=== PATIENT | female | born 1950 | race Caucasian/White ===

== ENCOUNTER 2020-02-19 12:50 | Emergency (ER) | payer MEDICARE ==
[~2020-02-19] VITALS: Ht 157.5 cm; Wt 105.5 kg
[~2020-02-19 12:50] MED LIST: CARTIA XT120 MG PO; LEVAQUIN500 MG PO; LEVOTHYROXINE112 MCG PO; LOSARTAN POTASS25 MG PO; OMEPRAZOLE40 MG PO; SERTRALINE HCL50 MG PO; TYLENOL WITH C1 EACH PO
[2020-02-19] MEDS ORDERED: NIFEDIPINE ER30 M1 (13:13)
--- NOTE | 2020-02-19 13:16 | Emergency Department Note ---
History of Present Illnes History of Present Illness Chief Complaint: rgt forehead/periorbital pain swelling/abrasions bilateral palms s/p trip and fall History of Present Illness This is a 69 year old female. was doing well prior to this. Historian: Patient Arrival Mode: Car Additional Treatment SIGNALS COLLECTOR/ANALYST: 1200 advil History limited by: condition of the patient (normal) Squeak Rattle And Leak Repairer Required: No Onset (how long ago): hour(s) (1.5) Location: see above Quality: see above Radiation: Reports non-radiation Severity: moderate Onset quality: sudden Duration (how long): hour(s) (1.5) Timing of current episode: constant Progression: unchanged Chronicity: new Context: Reports trauma/injury; Denies recent illness, Denies recent surgery, Denies recent immobilization, Denies recent travel, Denies new medications, Denies hx of DVT/PE, Denies non-compliance w/ medications Relieving factors: none Exacerbating factors: none Associated symptoms: Reports denies other symptoms Treatments prior to arrival: none Past Medical/Family History Physician Review I have reviewed the patient's past medical and family history. Any updates have been documented here. Past Medical History Recent Fever: No Clinical Suspicion of Infectio: No New/Unexplained Change in Ment: No Past Medical History: Hypertension, Hypothyroidism, GERD Other Medical History: DEPRESSION REFLUX Past Surgical History: Cholecysctectomy, T&A, Cataract Removal Other Surgery: Parathyroidectomy Social History Smoking Cessation: Never Smoker Counseling Performed: No Alcohol Use: None Any Illegal Drug Use: No Physically hurt or threatened: No Other Last Tetanus: UNK Any Pre-Existing Lines (PICC,: No Review of Systems Review of Systems Constitutional: Reports no symptoms EENTM: Reports no symptoms Cardiovascular: Reports no symptoms Respiratory: Reports no symptoms Gastrointestinal: Reports no symptoms Genitourinary: Reports no symptoms Musculoskeletal: Reports no symptoms Integumentary: Reports as per HPI, Reports other (abrasions) Neurological: Reports as per HPI, Reports headache Psychological: Reports no symptoms Endocrine: Reports no symptoms Hematological/Lymphatic: Reports no symptoms Review of other systems: All other systems negative Physical Exam Related Data Allergies: Coded Allergies: alendronate sodium (Verified Allergy, Unknown, 02/19/20) Triage Vital Signs Vital Signs Date Time Temp Pulse Resp B/P (MAP) Pulse Ox O2 Delivery O2 Flow Rate FiO2 02/19/20 12:55 98.2 103 18 170/91 97 Room Air Vital signs reviewed: Yes Physical Exam CONSTITUTIONAL Constitutional: Present well-developed, Present well-nourished HENT HENT: Present normocephalic, Present oropharynx clear/moist, Present nose normal, Present other (rgt forehead /periorbital pain/swelling) HENT L/R: Present left ext ear normal, Present right ext ear normal EYES Eyes: Reports PERRL, Reports conjunctivae normal NECK Neck: Present ROM normal, Present supple PULMONARY Pulmonary: Present effort normal, Present breath sounds normal CARDIOVASCULAR Cardiovascular: Present regular rhythm, Present heart sounds normal, Present capillary refill normal, Present normal rate GASTROINTESTINAL Abdominal: Present soft, Present nontender, Present bowel sounds normal GENITOURINARY Genitourinary: Present exam deferred SKIN Skin: Present warm, Present other (abrasions rgt periorbitla/bilateral palms) MUSCULOSKELETAL Musculoskeletal: Present ROM normal NEUROLOGICAL Neurological: Present alert, Present oriented x 3, Present no gross motor or sensory deficits PSYCHOLOGICAL Psychological: Present mood/affect normal, Present judgement normal Results Imaging Imaging results reviewed: Yes Impressions [place] [id number] Patient Name: SOPHIA ELLIS MR #: [id number] : 1950 Age/Sex: 69/F Req #: [id number] Adm Physician: Ordered by: LILA KENNEY Report #: [id number] Location: [facility] Room/Bed: Procedure: [id number] HOPD/CT BRAIN WO-HOPD Exam Date: 02/19/20 Exam Time: 1333 REPORT STATUS: Signed CT BRAIN WO-HOPD HISTORY: Fall COMPARISON: None. TECHNIQUE: Noncontrast axial scans were obtained from skull base to the vertex. Coronal and sagittal reconstructions obtained from the axial data. One or more of the following dose reduction techniques were used: Automated exposure control, adjustment of the mA and/or kV according to patient size, and/or utilization of iterative reconstruction technique. Beam hardening artifacts obscure some details. DISCUSSION: Scalp/Skull: Small superficial right periorbital hematoma is present. No calvarial fracture is seen. Small exostosis along the outer table of the left parietal bone is present. Brain sulci: Appropriate for patient's age. Ventricles: Normal in size and configuration. No hydrocephalus. Extra-axial spaces: No masses or fluid collections. Carotid siphon calcifications are present. Parenchyma: Small hypodensities in the right striatocapsular region and posterior left centrum semiovale may be age indeterminate lacunar infarcts. Otherwise, no mass, hemorrhage, or large vascular territory acute infarct. Dural sinuses: No abnormal densities. Sellar/Suprasellar region: Intact. Skull base: Intact. Incidental findings: Bilateral ocular lens replacement. Partially imaged minimal left maxillary sinus mucosal thickening. IMPRESSION: 1. 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 2. Otherwise, no acute intracranial abnormalities. Signed by: Dr. Vito Bowser M.D. on 02/19/2020 2:06 PM Dictated By: VITO BOWSER MD 05 Transcribed By: LAURENCE on 02/19/201405 COPY TO: LILA KENNEY~ [place] [address] Patient Name: SOPHIA ELLIS MR #: [id number] : 1950 Age/Sex: 69/F Req #: [id number] Adm Physician: Ordered by: LILA KENNEY Report #: [id number] Location: [facility] Room/Bed: Procedure: [id number] HOPD/CT MAX/FACPARANASA SIN WO-HOPD Exam Date: 02/19/20 Exam Time: 1340 REPORT STATUS: Signed CT MAX/FACPARANASA SIN WO-HOPD HISTORY: Pain, fall COMPARISON: None. TECHNIQUE: Axial CT images through the face were obtained without contrast. Coronal/sagittal reformations were created. One or more of the following dose reduction techniques were used: Automated exposure control, adjustment of the mA and/or kV according to patient size, and/or utilization of iterative reconstruction technique. DISCUSSION: Small superficial right periorbital hematoma is present. No acute fracture is seen. No destructive osseous lesions are seen. There are mild degenerative changes in the spine and temporomandibular joints. The orbits are intact. Bilateral ocular lens replacement. Intraorbital contents are otherwise grossly unremarkable. Minimal left maxillary sinus mucosal thickening is present. IMPRESSION: No acute osseous abnormalities. Signed by: Dr. Vito Bowser M.D. on 02/19/2020 2:11 PM Dictated By: VITO BOWSER MD 1411 Transcribed By: LAURENCE on 02/19/20 1411 COPY TO: LILA KENNEY~ Assessment & Plan Medical Decision Making MDM see below Assessment & Plan Final Impression: (1) Multiple contusions (2) Traumatic hematoma of cheek (3) Abrasion (4) Fall Depart Disposition: HOME, SELF-CARE Last Vital Signs Date Time Temp Pulse Resp B/P (MAP) Pulse Ox O2 Delivery O2 Flow Rate FiO2 02/19/20 12:55 98.2 103 18 170/91 97 Room Air Home Meds Reported Medications Nifedipine (NIFEDIPINE ER) 30 Mg Tab.er.24, DAILY 02/19/20 Omeprazole (OMEPRAZOLE) 40 Mg Capsule.dr, 40 MG PO DAILY 04/13/16 Losartan Potassium (LOSARTAN POTASSIUM) 25 Mg Tablet, 25 MG PO DAILY 04/13/16 Levothyroxine Sodium (LEVOTHYROXINE SODIUM) 112 Mcg Tablet, 100 MCG PO DAILY, #30 TAB 04/13/16 Discontinued Reported Medications Acetaminophen With Codeine (TYLENOL WITH CODEINE #3 TABLET) 1 Each Tablet, 300 MG PO Q6H, TAB 04/13/16 Levofloxacin (LEVAQUIN) 500 Mg Tablet, 500 MG PO DAILY, TAB 04/13/16 Diltiazem Hcl (CARTIA XT) 120 Mg Cap.er.24h, 120 MG PO DAILY 04/13/16 Sertraline Hcl (SERTRALINE HCL) 50 Mg Tablet, 25 MG PO DAILY, #30 TAB 04/13/16 LILA KENNEY Feb 19, 2020 13:16
--- NOTE | 2020-02-19 14:09 | Diagnostic Imaging Report ---
CT BRAIN [facility] HISTORY: Fall COMPARISON: None. TECHNIQUE: Noncontrast axial scans were obtained from skull base to the vertex. Coronal and sagittal reconstructions obtained from the axial data. One or more of the following dose reduction techniques were used: Automated exposure control, adjustment of the mA and/or kV according to patient size, and/or utilization of iterative reconstruction technique. Beam hardening artifacts obscure some details. DISCUSSION: Scalp/Skull: Small superficial right periorbital hematoma is present. No calvarial fracture is seen. Small exostosis along the outer table of the left parietal bone is present. Brain sulci: Appropriate for patient's age. Ventricles: Normal in size and configuration. No hydrocephalus. Extra-axial spaces: No masses or fluid collections. Carotid siphon calcifications are present. Parenchyma: Small hypodensities in the right striatocapsular region and posterior left centrum semiovale may be age indeterminate lacunar infarcts. Otherwise, no mass, hemorrhage, or large vascular territory acute infarct. Dural sinuses: No abnormal densities. Sellar/Suprasellar region: Intact. Skull base: Intact. Incidental findings: Bilateral ocular lens replacement. Partially imaged minimal left maxillary sinus mucosal thickening. IMPRESSION: 1. 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 2. Otherwise, no acute intracranial abnormalities. Signed by: Dr. Vito Ahuja M.D. on 02/19/2020 2:06 PM
--- NOTE | 2020-02-19 14:14 | Diagnostic Imaging Report ---
CT MAX/FACPARANASA [facility] HISTORY: Pain, fall COMPARISON: None. TECHNIQUE: Axial CT images through the face were obtained without contrast. Coronal/sagittal reformations were created. One or more of the following dose reduction techniques were used: Automated exposure control, adjustment of the mA and/or kV according to patient size, and/or utilization of iterative reconstruction technique. DISCUSSION: Small superficial right periorbital hematoma is present. No acute fracture is seen. No destructive osseous lesions are seen. There are mild degenerative changes in the spine and temporomandibular joints. The orbits are intact. Bilateral ocular lens replacement. Intraorbital contents are otherwise grossly unremarkable. Minimal left maxillary sinus mucosal thickening is present. IMPRESSION: No acute osseous abnormalities. Signed by: Dr. Vito Ahuja M.D. on 02/19/2020 2:11 PM
[2020-02-19 14:38] VITALS: BP 170/86
== END 2020-02-19 14:37 | disposition home or self-care (01) ==
LOC: FSED 13:11
DX: S00.83XA Contusion of other part of head, initial encounter (principal); S60.512A Abrasion of left hand, initial encounter; S60.511A Abrasion of right hand, initial encounter; W01.0XXA Fall on same level from slipping, tripping and stumbling without subsequent striking against object, initial encounter; Y93.01 Activity, walking, marching and hiking; I10 Essential (primary) hypertension; E03.9 Hypothyroidism, unspecified; K21.9 Gastro-esophageal reflux disease without esophagitis
CPT/HCPCS: 70450; 70486; 99283

== ENCOUNTER 2024-06-11 08:35 | Emergency (ER) | payer MEDICARE ==
[~2024-06-11] VITALS: Ht 158.8 cm; Wt 88.1 kg
[~2024-06-11 08:35] MED LIST changes: +NIFEDIPINE ER30 M1
[2024-06-11 08:40] VITALS: PULSE 70; RESP 18; TEMP 97.9
[2024-06-11] MEDS ORDERED: CEPHALEXIN500 MG PO (09:55)
[2024-06-11] MEDS: SODIUM CHLORIDE 0.9% 1000ML 1,000 ML IV ONE (09:58)
[2024-06-11] MEDS ORDERED: LEVOTHYROXINE88 MCG PO (10:03)
[2024-06-11] MEDS ORDERED: BUSPIRONE HCL5 MG PO (10:03)
[2024-06-11] MEDS ORDERED: PROPRANOLOL HCL20 MG (10:03)
[2024-06-11] MEDS ORDERED: SERTRALINE HCL100 MG PO (10:03)
[2024-06-11 10:11] VITALS: BP 160/72; PULSE 52; RESP 18; TEMP 98.1; O2SAT 100
== END 2024-06-11 10:10 | disposition home or self-care (01) ==
LOC: FSED 08:40
DX: R00.2 Palpitations (principal); N30.90 Cystitis, unspecified without hematuria; E03.9 Hypothyroidism, unspecified; I10 Essential (primary) hypertension; K21.9 Gastro-esophageal reflux disease without esophagitis; F32.A Depression, unspecified; Z11.52 Encounter for screening for COVID-19; R94.31 Abnormal electrocardiogram [ECG] [EKG]
CPT/HCPCS: 0223U; 71045; 80053; 81003; 84484; 85025; 87400; 93005; 99283; J7030

== ENCOUNTER 2024-09-18 17:18 | Inpatient (IN) | payer MEDICARE ==
[~2024-09-18] VITALS: Ht 158.8 cm; Wt 71.7 kg
[~2024-09-18 17:18] MED LIST changes: +BUSPIRONE HCL5 MG PO; +CEPHALEXIN500 MG PO; +LEVOTHYROXINE88 MCG PO; +PROPRANOLOL HCL20 MG; +SERTRALINE HCL100 MG PO
[2024-09-18 17:39] VITALS: TEMP 97.5
[2024-09-18 19:15] LABS: BASOPHILS # (AUTO) 0.1 (0.0-0.1); BASOPHILS % 0.8 % (0.0-1.0); EOSINOPHILS # (AUTO) 0.1 (0.0-0.4); EOSINOPHILS % 1.1 % (0.0-6.0); HEMATOCRIT 42.6 % (34.2-44.1); HEMOGLOBIN 14.6 g/dL (12.0-16.0); LYMPHOCYTES # (AUTO) 1.2 (1.0-3.2); LYMPHOCYTES % 13.2 % (18.0-39.1); MEAN CORPUSCULAR HEMOGLOBIN 31.1 pg (28-32); MEAN CORPUSCULAR HGB CONC 34.3 g/dL (31-35); MEAN CORPUSCULAR VOLUME 90.6 fL (81-99); MONOCYTES # (AUTO) 0.7 (0.2-0.8); MONOCYTES % 8.1 % (4.4-11.3); NEUTROPHILS # (AUTO) 6.9 (2.1-6.9); NEUTROPHILS % 76.1 % (38.7-80.0); PLATELET COUNT 203 x10e3/uL (140-360); RED CELL DISTRIBUTION WIDTH 13.5 % (11.7-14.4); WHITE BLOOD COUNT 9.01 x10e3/uL (4.8-10.8)
[2024-09-18 19:36] LABS: ALBUMIN 3.6 g/dL (3.5-5.0); ALBUMIN/GLOBULIN RATIO 0.9 (0.8-2.0); ANION GAP 20.7 mmol/L (8-16); BILIRUBIN,TOTAL 0.7 mg/dL (0.2-1.2); CALCIUM 9.7 mg/dL (8.4-10.2); CREATININE, SERUM 1.06 mg/dL (0.57-1.11); POTASSIUM 3.7 mmol/L (3.5-5.1); TOTAL PROTEIN 7.4 g/dL (6.5-8.1)
[2024-09-18 19:44] LABS: TROPONIN I 0.018 ng/mL (0-0.300)
[2024-09-18] MEDS: SODIUM CHLORIDE 0.9% 1000ML 2,000 ML IV STA (20:18)
[2024-09-18] MEDS ORDERED: SODIUM CHLORIDE 0.9% 1000ML 1,000 ML ONE (20:19)
[2024-09-18] MEDS ORDERED: Morphine 2mg Syringe 2 MG/ML SYR IV PRN (21:00)
[2024-09-18] MEDS ORDERED: SODIUM CHLORIDE 0.9% 1000ML 2,000 ML ONE (21:37)
[2024-09-18] MEDS: SODIUM CHLORIDE 0.9% 1000ML 1,000 ML IV SCH (21:40)
[2024-09-18] MEDS: SODIUM CHLORIDE 0.9% 1000ML 2,000 ML IV SCH (21:41)
[2024-09-18 23:45] LABS: CLARITY,URINE CLEAR (CLEAR); COLOR,URINE AMBER (YELLOW); LEUKOCYTE ESTERASE ,URINE NEGATIVE (NEGATIVE); NITRITE,URINE NEGATIVE (NEGATIVE); PH,URINE 5.5 (5 - 7); PROTEIN,URINE DIPSTICK 1+ (NEGATIVE)
[2024-09-18 23:46] LABS: BILIRUBIN,URINE MODERATE (NEGATIVE); GLUCOSE, URINE NEGATIVE (NEGATIVE); KETONES,URINE NEGATIVE (NEGATIVE); URINE UROBILINOGEN 1 mg/dL (0.2 - 1)
[2024-09-18 23:48] LABS: EPITHELIAL CELLS,URINE RARE /LPF; MUCUS,URINE MODERATE; RBC,URINE 0-5 /HPF (0-5); WBC,URINE (MAN) 0-5 /HPF (0-5)
[2024-09-18 23:49] LABS: BACTERIA,URINE FEW /HPF
[2024-09-19] VITALS (9 sets, daily range): BP systolic 123–157; BP diastolic 70–93; PULSE 72–95; RESP 17–20; TEMP 97.9–98.3; O2SAT 98–100
[2024-09-19] MEDS ORDERED: Morphine 2mg Syringe 2 MG/ML SYR IV PRN (00:45)
[2024-09-19] MEDS ORDERED: ONDANSETRON HCL INJ 2MG/ML 2ML 2 MG/ML VIAL IV PRN (00:45)
[2024-09-19] MEDS ORDERED: BENZONATATE 100 MG CAP PO PRN (01:45)
[2024-09-19] MEDS ORDERED: DIPHENHYDRAMINE HCL 25 MG CAP PO PRN (01:45)
[2024-09-19] MEDS ORDERED: LIDOCAINE 4% PATCH TP PRN (01:45)
[2024-09-19] MEDS ORDERED: DEXTROSE 50% SYRINGE 50 ML IV PRN (01:45)
[2024-09-19] MEDS ORDERED: DOCUSATE SODIUM 100 MG CAP PO PRN (01:45)
[2024-09-19] MEDS ORDERED: SIMETHICONE 80 MG CHEW PO PRN (01:45)
[2024-09-19] MEDS ORDERED: ALBUTEROL/IPRATROPIUM 3 ML NEB NEB PRN (01:45)
[2024-09-19] MEDS: SODIUM CHLORIDE 0.9% 1000ML 1,000 ML IV SCH (02:31)
[2024-09-19 05:34] LABS: BASOPHILS # (AUTO) 0.1 (0.0-0.1); BASOPHILS % 0.7 % (0.0-1.0); EOSINOPHILS # (AUTO) 0.1 (0.0-0.4); EOSINOPHILS % 1.5 % (0.0-6.0); HEMOGLOBIN 11.8 g/dL (12.0-16.0); LYMPHOCYTES # (AUTO) 1.3 (1.0-3.2); LYMPHOCYTES % 14.2 % (18.0-39.1); MEAN CORPUSCULAR HEMOGLOBIN 31.6 pg (28-32); MEAN CORPUSCULAR HGB CONC 34.7 g/dL (31-35); MEAN CORPUSCULAR VOLUME 90.9 fL (81-99); MONOCYTES # (AUTO) 0.7 (0.2-0.8); MONOCYTES % 7.9 % (4.4-11.3); NEUTROPHILS # (AUTO) 6.9 (2.1-6.9); NEUTROPHILS % 75.2 % (38.7-80.0); PLATELET COUNT 157 x10e3/uL (140-360); RED BLOOD COUNT 3.74 x10e6/uL (3.6-5.1); RED CELL DISTRIBUTION WIDTH 13.6 % (11.7-14.4); WHITE BLOOD COUNT 9.13 x10e3/uL (4.8-10.8)
[2024-09-19 05:36] LABS: CHOL/HDL RATIO 4.8 (3.0-3.6)
[2024-09-19 05:50] LABS: TROPONIN I 0.081 ng/mL (0-0.300)
[2024-09-19 05:57] LABS: THYROID STIMULATING HORMONE 0.386 uIU/mL (0.350-4.940)
[2024-09-19 06:09] LABS: ALBUMIN 2.7 g/dL (3.5-5.0); ALBUMIN/GLOBULIN RATIO 0.9 (0.8-2.0); ANION GAP 17.2 mmol/L (8-16); BILIRUBIN,TOTAL 0.4 mg/dL (0.2-1.2); CALCIUM 7.6 mg/dL (8.4-10.2); CREATININE, SERUM 0.73 mg/dL (0.57-1.11); POTASSIUM 3.2 mmol/L (3.5-5.1); TOTAL PROTEIN 5.6 g/dL (6.5-8.1)
[2024-09-19] MEDS ORDERED: IOPAMIDOL 370 MG/ML 100 ML INFUS..BTL INJ ONE (06:48)
[2024-09-19] MEDS ORDERED: ARIPIPRAZOLE2 MG PO (07:50)
[2024-09-19] MEDS ORDERED: NYSTATIN15 G2 TOP (07:50)
[2024-09-19] MEDS ORDERED: KETOCONAZOLE15 GM TOP (07:50)
[2024-09-19] MEDS: PANTOPRAZOLE SOD 40 MG TABEC PO SCH (12:04)
[2024-09-19] MEDS: POTASSIUM CHLORIDE 20 MEQ TAB CR PO PRN (12:05)
[2024-09-19 17:01] LABS: TROPONIN I 0.046 ng/mL (0-0.300)
[2024-09-19 17:19] LABS: FREE T4 (FREE THYROXINE) 1.09 ng/dL (0.8-1.8); THYROID STIMULATING HORMONE 0.465 uIU/mL (0.350-4.940)
[2024-09-19] MEDS: BUSPIRONE HCL 5 MG TAB PO SCH (18:03)
[2024-09-19] MEDS: ENOXAPARIN SOD INJ 40 MG/0.4 ML SYR SC SCH (18:04)
[2024-09-19] MEDS: SERTRALINE HCL 100 MG TAB PO SCH (21:41)
[2024-09-20] VITALS (7 sets, daily range): BP systolic 126–163; BP diastolic 66–98; PULSE 62–91; RESP 16–19; TEMP 97–98.8; O2SAT 95–100
[2024-09-20] MEDS: MELATONIN 5 MG TABLET PO PRN (01:01)
[2024-09-20] MEDS: ACETAMINOPHEN 325 MG TAB PO PRN (01:02)
[2024-09-20 05:20] LABS: BASOPHILS # (AUTO) 0.1 (0.0-0.1); EOSINOPHILS # (AUTO) 0.2 (0.0-0.4); EOSINOPHILS % 2.9 % (0.0-6.0); HEMATOCRIT 33.6 % (34.2-44.1); HEMOGLOBIN 11.2 g/dL (12.0-16.0); LYMPHOCYTES # (AUTO) 1.1 (1.0-3.2); LYMPHOCYTES % 15.4 % (18.0-39.1); MEAN CORPUSCULAR HEMOGLOBIN 31.4 pg (28-32); MEAN CORPUSCULAR HGB CONC 33.3 g/dL (31-35); MEAN CORPUSCULAR VOLUME 94.1 fL (81-99); MONOCYTES # (AUTO) 0.6 (0.2-0.8); MONOCYTES % 8.2 % (4.4-11.3); NEUTROPHILS # (AUTO) 5.3 (2.1-6.9); NEUTROPHILS % 72.2 % (38.7-80.0); PLATELET COUNT 147 x10e3/uL (140-360); RED BLOOD COUNT 3.57 x10e6/uL (3.6-5.1); RED CELL DISTRIBUTION WIDTH 13.6 % (11.7-14.4); WHITE BLOOD COUNT 7.36 x10e3/uL (4.8-10.8)
[2024-09-20] MEDS ORDERED: IOPAMIDOL 370 MG/ML 100 ML INFUS..BTL INJ ONE (05:39)
[2024-09-20 06:09] LABS: ALBUMIN 2.7 g/dL (3.5-5.0); ANION GAP 15.5 mmol/L (8-16); BILIRUBIN,TOTAL 0.4 mg/dL (0.2-1.2); CALCIUM 7.5 mg/dL (8.4-10.2); CREATININE, SERUM 0.71 mg/dL (0.57-1.11); POTASSIUM 3.5 mmol/L (3.5-5.1); TOTAL PROTEIN 5.4 g/dL (6.5-8.1)
[2024-09-20] MEDS: LEVOTHYROXINE SODIUM 88 MCG TAB PO SCH (11:27)
[2024-09-20] MEDS: ARIPIPRAZOLE 2 MG TABLET PO SCH (11:27)
[2024-09-20] MEDS: MEGACE 400 MG / 10 ML CUP PO SCH (16:34)
[2024-09-20] MEDS: D5NS/KCL 20MEQ 1,000 ML IV SCH (16:35)
[2024-09-20] MEDS ORDERED: ARTIFICIAL TEARS (OPTH) 15 ML BTL OU PRN (17:30)
[2024-09-20] MEDS: CYANOCOBALAMIN INJ 1,000 MCG/ML VIAL IM ONE (21:38)
[2024-09-21] VITALS: BP 139/80; PULSE 62; RESP 16; TEMP 97.7; O2SAT 100
[2024-09-21 00:38] LABS: % IRON SATURATION 22 % (15-50); IRON 40 ug/dL (50-170); TOTAL IRON BINDING CAPACITY 181 ug/dL (261-478); TRANSFERRIN 129 mg/dL (180-382)
[2024-09-21 05:08] LABS: BASOPHILS # (AUTO) 0.1 (0.0-0.1); EOSINOPHILS # (AUTO) 0.3 (0.0-0.4); EOSINOPHILS % 4.9 % (0.0-6.0); HEMATOCRIT 32.2 % (34.2-44.1); HEMOGLOBIN 11.1 g/dL (12.0-16.0); LYMPHOCYTES # (AUTO) 1.2 (1.0-3.2); LYMPHOCYTES % 19.7 % (18.0-39.1); MEAN CORPUSCULAR HEMOGLOBIN 31.4 pg (28-32); MEAN CORPUSCULAR HGB CONC 34.5 g/dL (31-35); MONOCYTES # (AUTO) 0.5 (0.2-0.8); MONOCYTES % 8.7 % (4.4-11.3); NEUTROPHILS # (AUTO) 3.8 (2.1-6.9); NEUTROPHILS % 65.2 % (38.7-80.0); PLATELET COUNT 160 x10e3/uL (140-360); RED BLOOD COUNT 3.54 x10e6/uL (3.6-5.1); RED CELL DISTRIBUTION WIDTH 13.6 % (11.7-14.4); WHITE BLOOD COUNT 5.89 x10e3/uL (4.8-10.8)
[2024-09-21 05:41] LABS: ANION GAP 12.2 mmol/L (8-16); CALCIUM 7.7 mg/dL (8.4-10.2); CREATININE, SERUM 0.68 mg/dL (0.57-1.11)
[2024-09-21 05:49] LABS: POTASSIUM 3.2 mmol/L (3.5-5.1)
[2024-09-21 05:50] VITALS: BP 148/78; PULSE 60; RESP 16; TEMP 97.3; O2SAT 99
[2024-09-21] MEDS: LEVOTHYROXINE SODIUM 100 MCG TAB PO SCH (06:41)
[2024-09-21 08:00] VITALS: BP 132/78; PULSE 72; RESP 18; TEMP 97.8; O2SAT 99
[2024-09-21] MEDS: CYANOCOBALAMIN INJ 1,000 MCG/ML VIAL IM SCH (09:40)
[2024-09-21] MEDS: NYSTATIN 15 GM POWDER UD BTL TOP SCH (09:42)
[2024-09-21 12:11] VITALS: BP 137/69; PULSE 75; RESP 20; TEMP 98.2; O2SAT 99
[2024-09-21] MEDS: D5NS/KCL 20MEQ 1,000 ML IV SCH (17:01)
[2024-09-21 20:00] VITALS: BP 140/80; PULSE 78; RESP 18; TEMP 98.3; O2SAT 98
[2024-09-21] MEDS: SERTRALINE HCL 100 MG TAB PO SCH (22:06)
[2024-09-21] MEDS: HYDROCODONE/APAP 5MG-325MG TAB PO PRN (22:08)
[2024-09-22] VITALS (8 sets, daily range): BP systolic 120–145; BP diastolic 32–83; PULSE 66–82; RESP 18–20; TEMP 97.7–99.1; O2SAT 98–100
[2024-09-22] MEDS: IRON SUCROSE 100 MG in SODIUM CHLORIDE 0.9% 100 ML IV SCH (09:41)
[2024-09-22] MEDS: ARIPIPRAZOLE 5 MG TABLET PO SCH (09:41)
[2024-09-23] VITALS (7 sets, daily range): BP systolic 117–148; BP diastolic 68–87; PULSE 72–111; RESP 16–22; TEMP 97.3–98.3; O2SAT 98–100
[2024-09-23 07:55] LABS: BASOPHILS # (AUTO) 0.1 (0.0-0.1); BASOPHILS % 0.9 % (0.0-1.0); EOSINOPHILS # (AUTO) 0.3 (0.0-0.4); EOSINOPHILS % 4.9 % (0.0-6.0); HEMOGLOBIN 12.3 g/dL (12.0-16.0); LYMPHOCYTES # (AUTO) 1.3 (1.0-3.2); LYMPHOCYTES % 22.4 % (18.0-39.1); MEAN CORPUSCULAR HEMOGLOBIN 31.6 pg (28-32); MEAN CORPUSCULAR HGB CONC 33.2 g/dL (31-35); MEAN CORPUSCULAR VOLUME 95.1 fL (81-99); MONOCYTES # (AUTO) 0.4 (0.2-0.8); MONOCYTES % 6.9 % (4.4-11.3); NEUTROPHILS # (AUTO) 3.7 (2.1-6.9); NEUTROPHILS % 64.4 % (38.7-80.0); PLATELET COUNT 174 x10e3/uL (140-360); RED BLOOD COUNT 3.89 x10e6/uL (3.6-5.1); RED CELL DISTRIBUTION WIDTH 14.4 % (11.7-14.4); WHITE BLOOD COUNT 5.76 x10e3/uL (4.8-10.8)
[2024-09-23 08:30] LABS: ANION GAP 12.6 mmol/L (8-16); BLOOD UREA NITROGEN < 5 mg/dL (7-26); CALCIUM 7.7 mg/dL (8.4-10.2); CARBON DIOXIDE 18 mmol/L (22-29); CHLORIDE 111 mmol/L (98-107); EST GLOMERULAR FILTRATION RATE 91 ML/MIN (>=60); GLUCOSE 88 mg/dL (74-118); POTASSIUM 3.6 mmol/L (3.5-5.1); SODIUM 138 mmol/L (136-145)
[2024-09-23 08:31] LABS: BUN/CREATININE RATIO 7 (6-25)
[2024-09-24] VITALS (9 sets, daily range): BP systolic 117–174; BP diastolic 73–97; PULSE 84–108; RESP 18–22; TEMP 97.6–98.9; O2SAT 97–100
[2024-09-24] MEDS: ONDANSETRON HCL INJ 2MG/ML 2ML 2 MG/ML VIAL IV PRN (04:55)
[2024-09-24] MEDS: HYDRALAZINE HCL 20 MG/ML VIAL IV PRN (11:38)
[2024-09-24] MEDS ORDERED: MULTIVITAMINS- 12 INJECTION 10 ML, FOLIC ACID MDV 1 MG, THIAMINE HCL INJ 100 MG in SODI... IV SCH (15:00)
[2024-09-24] MEDS: LOSARTAN POTASSIUM 100 MG TAB PO SCH (15:52)
[2024-09-24] MEDS: CLONAZEPAM 0.5 MG TAB PO SCH (15:52)
[2024-09-24] MEDS: MULTIVITAMINS- 12 INJECTION 10 ML, FOLIC ACID MDV 1 MG, THIAMINE HCL INJ 100 MG in SODI... IV SCH (16:21)
[2024-09-25] VITALS (9 sets, daily range): BP systolic 121–168; BP diastolic 62–95; PULSE 92–99; RESP 17–19; TEMP 98.1–98.6; O2SAT 95–99
[2024-09-26] VITALS (11 sets, daily range): BP systolic 107–170; BP diastolic 61–93; PULSE 75–107; RESP 16–20; TEMP 97.6–98.6; O2SAT 96–100
[2024-09-27] VITALS (11 sets, daily range): BP systolic 114–171; BP diastolic 57–110; PULSE 74–100; RESP 16–20; TEMP 97.5–99; O2SAT 97–100
[2024-09-27 04:54] LABS: BASOPHILS # (AUTO) 0.1 (0.0-0.1); BASOPHILS % 0.6 % (0.0-1.0); EOSINOPHILS # (AUTO) 0.2 (0.0-0.4); EOSINOPHILS % 1.8 % (0.0-6.0); HEMATOCRIT 32.5 % (34.2-44.1); HEMOGLOBIN 11.3 g/dL (12.0-16.0); LYMPHOCYTES % 23.2 % (18.0-39.1); MEAN CORPUSCULAR HEMOGLOBIN 31.7 pg (28-32); MEAN CORPUSCULAR HGB CONC 34.8 g/dL (31-35); MEAN CORPUSCULAR VOLUME 91.3 fL (81-99); MONOCYTES # (AUTO) 0.7 (0.2-0.8); MONOCYTES % 7.6 % (4.4-11.3); NEUTROPHILS # (AUTO) 5.8 (2.1-6.9); NEUTROPHILS % 66.3 % (38.7-80.0); PLATELET COUNT 196 x10e3/uL (140-360); RED BLOOD COUNT 3.56 x10e6/uL (3.6-5.1); RED CELL DISTRIBUTION WIDTH 14.6 % (11.7-14.4); WHITE BLOOD COUNT 8.68 x10e3/uL (4.8-10.8)
[2024-09-27 05:21] LABS: ANION GAP 13.9 mmol/L (8-16); CREATININE, SERUM 0.71 mg/dL (0.57-1.11)
[2024-09-27 05:22] LABS: POTASSIUM 2.9 mmol/L (3.5-5.1)
[2024-09-27 12:13] LABS: BLAST CELLS % MANUAL 2; EOSINOPHILS % (MANUAL) 3 % (0-7); LYMPHOCYTES % (MANUAL) 16 % (19-48); MONOCYTES % (MANUAL) 9 % (3.4-9.0); NEUTROPHILS % (MANUAL) 66 % (40-74); REACTIVE LYMPHOCYTES 4
[2024-09-27 12:17] LABS: PLATELET ESTIMATE ADEQUATE; PLATELET MORPHOLOGY COMMENT NORMAL; RBC MORPHOLOGY COMMENT NORMAL
[2024-09-27] MEDS ORDERED: SODIUM BICARBONATE 8.4% INJ 50 ML SYR IV ONE (16:25)
[2024-09-27] MEDS: SODIUM BICARBONATE 650 MG TAB PO SCH (16:26)
[2024-09-27] MEDS: POTASSIUM CHLORIDE 20 MEQ TAB CR PO STA (16:26)
[2024-09-27 20:27] LABS: ANION GAP 12.3 mmol/L (8-16); CALCIUM 8.2 mg/dL (8.4-10.2); CREATININE, SERUM 0.74 mg/dL (0.57-1.11)
[2024-09-27 20:30] LABS: POTASSIUM 3.3 mmol/L (3.5-5.1)
[2024-09-28] VITALS (8 sets, daily range): BP systolic 112–154; BP diastolic 62–83; PULSE 66–78; RESP 16–18; TEMP 97.4–98.2; O2SAT 95–100
[2024-09-28 05:30] LABS: ANION GAP 11.6 mmol/L (8-16); CALCIUM 8.4 mg/dL (8.4-10.2); CREATININE, SERUM 0.76 mg/dL (0.57-1.11); POTASSIUM 3.6 mmol/L (3.5-5.1)
[2024-09-29] VITALS: BP 143/96; PULSE 86; RESP 18; TEMP 97.9; O2SAT 99
[2024-09-29 06:14] VITALS: PULSE 78; RESP 20; O2SAT 95
== END 2024-09-29 01:30 | DRG 56 ==
LOC: ER 18:12 → ERHOLD 21:18 → UNDOADMIN 21:18 → ERHOLD 09-19 00:47 → MED/SURG 09-19 01:35
PROVIDERS: ADMIT Internal Medicine; ATTEND Internal Medicine
PROC: 0T9B70Z Drainage of Bladder with Drainage Device, Via Natural or Artificial Opening (ICD-10-PCS; principal; 2024-09-18)
DX: G20.A1 Parkinson's disease without dyskinesia, without mention of fluctuations (principal); E43 Unspecified severe protein-calorie malnutrition; G82.50 Quadriplegia, unspecified; N39.0 Urinary tract infection, site not specified; N17.9 Acute kidney failure, unspecified; F02.84 Dementia in other diseases classified elsewhere, unspecified severity, with anxiety; F01.54 Vascular dementia, unspecified severity, with anxiety; M50.00 Cervical disc disorder with myelopathy, unspecified cervical region; F02.811 Dementia in other diseases classified elsewhere, unspecified severity, with agitation; F01.511 Vascular dementia, unspecified severity, with agitation; G21.11 Neuroleptic induced parkinsonism; T43.595A Adverse effect of other antipsychotics and neuroleptics, initial encounter; R62.7 Adult failure to thrive; E66.01 Morbid (severe) obesity due to excess calories; Z68.28 Body mass index [BMI] 28.0-28.9, adult; Z71.3 Dietary counseling and surveillance; I10 Essential (primary) hypertension; R33.9 Retention of urine, unspecified; E03.9 Hypothyroidism, unspecified; E86.0 Dehydration; F41.8 Other specified anxiety disorders; R11.2 Nausea with vomiting, unspecified; T83.021A Displacement of indwelling urethral catheter, initial encounter; K59.00 Constipation, unspecified; D50.9 Iron deficiency anemia, unspecified; E53.8 Deficiency of other specified B group vitamins; E89.2 Postprocedural hypoparathyroidism; K21.9 Gastro-esophageal reflux disease without esophagitis; G62.9 Polyneuropathy, unspecified; Y84.6 Urinary catheterization as the cause of abnormal reaction of the patient, or of later complication, without mention of misadventure at the time of the procedure; Y92.230 Patient room in hospital as the place of occurrence of the external cause; Y92.009 Unspecified place in unspecified non-institutional (private) residence as the place of occurrence of the external cause
CPT/HCPCS: 36415; 51700; 70450; 70551; 71045; 71260; 74018; 74177; 80048; 80053; 80061; 81001; 82550; 82607; 82746; 83036; 83540; 83690; 83880; 84439; 84443; 84466; 84484; 85025; 85045; 87040; 93005; 94799; 95819; 99252; 99285; J0360; J0696; J1650; J1756; J2405; J2470; J3411; J3420; J7030; J7050; Q9967; U0002